=== PATIENT | male | born 1970 | race African-American/Black ===

== ENCOUNTER 2023-09-21 15:12 | Emergency (ER) | payer OTHER, SELFPAY ==
[2023-09-21 15:14] VITALS: BP 176/110; PULSE 112; RESP 18; TEMP 37.4; O2SAT 100; BMI 25.9
--- NOTE | 2023-09-21 16:46 | ED.VIS.GI ---
HPI HPI - GI History of Present Illness Chief Complaint: GI Bleed Informant: patient Narrative Narrative: Patient is a 53-year-old male present with bright red blood per rectum. Patient states he felt like he was getting a hemorrhoid yesterday and bought some Preparation H. He notes he was having pain with wiping but had not noticed any bleeding. He states he does sit on the toilet for extended amounts of time looking at his phone and reading the news. He is not on any blood thinners. Is never had a colonoscopy. Does not take any medicine on a daily basis. Today while he was bending over to pick something up he felt a pop in his rectal area and then noticed that he was bleeding around his rectum. He states the pain is actually improved since that pop. Because of the amount of blood around his rectum and in his underwear he came in to be evaluated further. Denies any prior history of any hemorrhoids. Does feel that there is some swelling in his rectal area as well. No other complaints at this time. PFSH PFSH Medical History no medical history Home Medications NK 09/21/23 [History Last Taken Unknown] Allergy/AdvReac Type Severity Reaction Status Date / Time No Known Allergies Allergy Verified 09/21/23 15:13 Family History no significant family his Surgical History History of hernia surgery Social History household members: significant other current occupational status: employed Smoking Status: Current every day smoker tobacco type: cigarettes ROS ROS ED Constitutional Constitutional ED: Denies chills or fever(s) Gastrointestinal Gastrointestinal: Reports other Details: Bright red blood per rectum, rectal pain?improving ; Denies abdominal pain, constipation, diarrhea, nausea or vomiting Genitourinary Genitourinary ED: Denies dysuria Musculoskeletal Musculoskeletal: Denies arthralgias or myalgias Integumentary Denies rash Neurologic Neurologic: Denies headache(s) Hematologic/Lymphatic Hematologic/Lymphatic: Denies easy bleeding or easy bruising EXAM Physical Exam Const Vital Signs: 09/21/23 15:14 09/21/23 17:01 Temperature 99.4 F H Temperature Source Oral Pulse Rate 112 H 80 Respiratory Rate 18 14 Blood Pressure 176/110 H 155/106 H Blood Pressure Mean 132 122 Pulse Ox 100 100 Oxygen Delivery Method Room Air Positive well nourished and well developed General Appearance ED: well developed and NAD; Negative for pallor HEENT Reports moist mucous membranes Resp normal respiratory effort Cardio regular rate and regular rhythm GI non-tender and non-distended GI Narrative: Patient has what appears to be an external hemorrhoid that had been bleeding and likely thrombosed on its own at the 3 o'clock position. No significant bleeding at this time. No significant tenderness. Palpation: soft; Negative for tender or guarding Neuro Sensorium / Orientation: alert, oriented to person, oriented to place and oriented to time Psych mental status grossly normal and thought process normal Skin no wounds General Skin Exam: Negative for pallor MDM MDM MDM Narrative Medical decision making narrative: Patient is evaluated for bright red blood per rectum. Initially some protocol orders have been placed by myself prior to seeing the patient due to his vital signs. However once I evaluated the patient I realized he had what appears to be a hemorrhoid that is thrombosed and spontaneously express itself/blood on its own. He is not actively bleeding. He is quite well-appearing. I do not think he needs laboratory evaluation at this time. No signs of secondary infection/abscess on exam. Will be given a referral for general surgery as he is also never had a screening colonoscopy. Is counseled on symptomatic treatment including sitz bath's, using donut pillow with sitting as he has a sit a lot at work, if he uses Preparation H to use it for no more than 1 week and the importance of following up with outpatient surgery for repeat evaluation and colonoscopy. Counseled to avoid straining with bowel movements and avoid sitting on the toilet for prolonged periods. Patient significant other verbalized agreement understand with this. Counseled that he might have some continued bleeding/oozing but as long as it is mild he will be fine to follow-up with surgery outpatient and it should stop on its own within the next few days. Given return precautions such as brisk bleeding, increasing pain, fever or developing abdominal pain or dizziness. Patient verbalized agreement understanding with this plan. Discharged home in stable condition. Discharge Plan Triage Chief Complaint: GI Bleed ED Provider: Linnea Fernandez Dx/Rx/DC Orders Clinical Impression: Bleeding external hemorrhoids Instructions: ED Hemorrhoids Prescriptions: No Action NK Primary Care Provider: Care Physician,No Primary Referrals: Jairo Figueroa MD [Med Staff - Active Staff] - As soon as possible Care Physician,No Primary [Primary Care Provider] - Activity Restrictions/Additional Instructions: It appears that you have a hemorrhoid that started bleeding on its own. Sometimes they can develop a clot (thrombosed) and these can pop and cause some residual bleeding. Apply compresses to the area, perform sitz bath's as we discussed, you can apply [id number] Preparation H but do not do this for more than a week and use a donut pillow. Please follow-up with general surgery for further evaluation, ensure you are healing well and discussion of colonoscopy. Disposition Disposition: Home, Self Care Discharge Date/Time: 09/21/23 17:11
[2023-09-21 17:01] VITALS: BP 155/106; PULSE 80; RESP 14; O2SAT 100
== END 2023-09-21 17:11 | disposition home or self-care (01) ==
PROVIDERS: Emergency Provider Emergency Medicine; Visit Provider Emergency Medicine
DX: K64.4 Residual hemorrhoidal skin tags (principal); F17.210 Nicotine dependence, cigarettes, uncomplicated
CPT/HCPCS: 99282

== ENCOUNTER 2023-10-31 21:47 | Emergency (ER) | payer OTHER, SELFPAY ==
[2023-10-31 21:47] VITALS: BP 166/107; PULSE 120; RESP 18; TEMP 36.8; O2SAT 99; BMI 26.6
[2023-10-31 22:07] VITALS: BP 154/101; PULSE 108; RESP 16
--- NOTE | 2023-10-31 22:38 | EKG12_ITS ---
Test Reason : CP Blood Pressure : / mmHG Vent. Rate : 111 BPM Atrial Rate : 111 BPM P-R Int : 178 ms QRS Dur : 088 ms QT Int : 324 ms P-R-T Axes : 053 025 033 degrees QTc Int : 440 ms Sinus tachycardia Inferior infarct , age undetermined Abnormal ECG Confirmed by ROC WESTBROOK, JASON ([id number]), video editor ISELA MACIAS ([id number]) on 11/09/2023 9:16:39 AM Referred By: Confirmed By:JASON BRIAN MD
--- NOTE | 2023-10-31 22:44 | EDS_ITS ---
HPI History of Present Illness Chief Complaint: Chest Pain Narrative Narrative: 53-year-old male who denies significant past medical history except for being a smoker presents with left-sided chest tightness that he has had all day. It is intermittent and maybe only lasts a few seconds to minutes. He denies any nausea or vomiting, no shortness of breath or diaphoresis. No exacerbating or alleviating factors. He also complained of left calf pain today, but no overt swelling. He denies any DVT or PE risk factors however. He states that his chest felt tight this evening. He was sitting down to watch a movie, and did not want to go to bed because his left chest felt uncomfortable. [facility] Medical History Smoker Home Medications NK 09/21/23 [History Last Taken Unknown] Allergy/AdvReac Type Severity Reaction Status Date / Time No Known Allergies Allergy Verified 10/31/23 21:49 Surgical History History of hernia surgery Social History household members: significant other current occupational status: employed Smoking Status: Current every day smoker tobacco type: cigarettes ROS ROS ED ROS Narrative Constitutional: No fever, no chills. HEENT: No sore throat. No neck pain. No loss of vision. No rhinorrhea. Cardiovascular: Left-sided chest tightness/chest pain. No palpitations. No pedal edema. Respiratory: No cough, no shortness of breath. Abdominal: No abdominal pain. No nausea. No vomiting. Genitourinary: No dysuria. No hematuria. Musculoskeletal: Left calf pain. No swelling. No arthralgias. Neurologic: No headaches. No dizziness. No lightheadedness. Skin: No rash. No change in color. Psychiatric: No depression. No anxiety. EXAM Physical Exam Narrative Exam Narrative: Afebrile. Vital signs noted. HEENT: Normocephalic. Atraumatic. PERRL, EOMI. Neck soft and supple. No point tenderness or step off. Cardiovascular: Positive tachycardia no murmurs, rubs, or gallops appreciated. Respiratory: No tachypnea. Lungs clear to auscultation bilaterally. Gastrointestinal: Abdomen soft, nontender, with normoactive bowel sounds. No rebound or guarding. Neurological: Awake. Alert. Nonfocal, nonlateralizing. Skin: No rash. Normal color. No pallor. Musculoskeletal: No pedal edema. Full range of motion extremities. Mild tenderness left calf, no swelling, no palpable cord, palpable dorsalis pedis pulse. Const Vital Signs: 10/31/23 21:47 10/31/23 22:07 10/31/23 22:10 Temperature 98.2 F Temperature Source Temporal Pulse Rate 120 H 108 H Respiratory Rate 18 16 Respiratory Effort Normal Blood Pressure 166/107 H 154/101 H Blood Pressure Mean 126 118 Pulse Ox 99 Oxygen Delivery Method Room Air 10/31/23 23:03 10/31/23 23:06 10/31/23 23:54 Temperature 98 F Temperature Source Oral Pulse Rate 110 H 103 H Respiratory Rate 16 17 Respiratory Effort Blood Pressure 151/91 H 162/110 H Blood Pressure Mean 111 127 Pulse Ox 94 94 94 Oxygen Delivery Method Room Air Room Air Room Air Heart Score History: Slightly/Non-Suspicious ECG: Normal Age: >45 - <65 years Risk Factors: 1 or 2 Risk Factors Score: 2 MDM MDM MDM Narrative Medical decision making narrative: In the differential diagnosis is acute coronary syndrome/STEMI/non-STEMI versus pulmonary embolism versus pneumonia versus pneumothorax. His history and physical is not consistent with pneumonia or pneumothorax. Comprehensive workup was pursued. EKG obtained and interpreted by myself independently as sinus tachycardia at 111 bpm without ectopy or acute ST changes. No STEMI. I reviewed his laboratory work and he has normal white count of 8.7, hemoglobin normal at 14.4, hematocrit 42.6, platelet count normal at 305. Electrolyte panel was reviewed and he has a normal sodium of 138, potassium 3.5, chloride 105, glucose appropriately elevated at 105 with a normal anion gap of 8. Initial high-sensitivity troponin is also 8. D-dimer is negative at less than 0.27. I have low suspicion for pulmonary embolism. Upon repeat examination at approximately 2345, he is resting comfortably and states he has not had the chest tightness while he has been here in the emergency department. I do not feel that he requires an aerosolized treatment as his pulse ox was 99% on room air and his lungs were clear to auscultation bilaterally. Smoking cessation was discussed as he may have had bronchospasm. Chest x-ray in 1 view interpreted by myself independently shows no evidence of pneumonia or pneumothorax. I reviewed the radiology report which confirms my independent interpretation. His blood pressure is slightly elevated here, but he is asymptomatic. He states he was told on a prior visit in September that he had elevation of his blood pressure and that he should follow-up with his primary care provider. I recommended the same. As his repeat troponin is also 8, I feel he be discharged to follow-up with his primary care provider. Return instructions to the emergency department were reviewed. Disposition is discharged home in stable condition. History & Record Review Discussion w/independent historian: Patient Additional record(s) reviewed:: Prior ED visit and Prior labs Lab Data Attestation: I reviewed the patient's lab results. Labs: Laboratory Results - last 24 hr 10/31/23 11/01/23 22:20 01:31 WBC 8.7 RBC 4.42 L Hgb 14.4 Hct 42.6 MCV 96.4 H MCH 32.6 H MCHC 33.8 RDW Std Deviation 46.3 H RDW Coeff of Charlene 12.9 Plt Count 305 MPV 9.6 Immature Gran % (Auto) 0.500 Neut % (Auto) 54.2 Lymph % (Auto) 32.2 [place] % (Auto) 9.6 Eos % (Auto) 2.6 Baso % (Auto) 0.9 Absolute Neuts (auto) 4.7 Absolute Lymphs (auto) 2.81 Nucleated RBC % 0 D-Dimer Quant (PE/DVT) < 0.27 L Sodium 138 Potassium 3.5 Chloride 105 Carbon Dioxide 25.0 Anion Gap 8 BUN 11 Creatinine 0.89 Estim Creat Clear Calc 107.78 Est GFR (MDRD) Af Amer 115 Est GFR (MDRD) Non-Af 95 BUN/Creatinine Ratio 12.3 Glucose 105 Calcium 8.6 Troponin I High Sens 8 8 Radiography Diagnostic Testing: Clinical Impression(s) from Imaging Studies Chest X-Ray 10/31/23 23:05 IMPRESSION: No radiographic evidence of acute cardiopulmonary disease. Electronically Signed: Maurice Lopez MD at 23:47 EST , Discharge Plan Triage Chief Complaint: Chest Pain ED Provider: Elías Burris Dx/Rx/DC Orders Clinical Impression: Pain of left calf, Chest tightness, Chest pain Instructions: ED Chest Pain, Uncertain Cause Prescriptions: No Action NK Primary Care Provider: Care Physician,No Primary Referrals: Camilo Mackay MD [Med Staff - Active Staff] - As soon as possible Care Physician,No Primary [Primary Care Provider] - Activity Restrictions/Additional Instructions: Follow-up with your primary care provider soon as possible. Stop smoking. Return with increased chest tightness, new or worsening symptoms. Disposition Disposition: Home, Self Care
[2023-10-31 23:03] VITALS: O2SAT 94
[2023-10-31] MEDS: 0.9% Normal Saline (1000mL) 1,000 ML 1000 ML IV (23:04)
[2023-10-31] MEDS: Aspirin 81 MG TAB.CHEW 324 MG PO (23:05)
--- NOTE | 2023-10-31 23:05 | RAD_ITS ---
EXAM: XR CHEST, 1 VIEW CLINICAL INDICATION: chest pain TECHNIQUE: Frontal view of the chest. COMPARISON: No relevant prior studies available. FINDINGS: LUNGS AND PLEURAL SPACES: Unremarkable. No consolidation or edema. No pneumothorax. No effusion. HEART: Unremarkable. Cardiac silhouette not enlarged. MEDIASTINUM: Central airways and mediastinal contour are unremarkable. BONES/JOINTS: Unremarkable. No acute fracture. SOFT TISSUES: Unremarkable. RAD/Chest 1 View (Portable) IMPRESSION: No radiographic evidence of acute cardiopulmonary disease. Electronically Signed: Maurice Lopez MD at 23:47 EST ,
[2023-10-31 23:06] VITALS: BP 151/91; PULSE 110; RESP 16; TEMP 36.6; O2SAT 94
[2023-10-31 23:19] LABS: Absolute Lymphocyte Count 2.81 X10^3/uL (0.83-4.51); Absolute Neutrophil Count 4.7 X10^3/uL (2.0-7.7); Basophil# 0.08 X10^3/uL; Basophil% 0.9 % (0-1); Eosinophil# 0.23 X10^3/uL; Eosinophils% 2.6 % (0-5); Hematocrit 42.6 % (40-54); Hemoglobin 14.4 g/dL (13.0-16.5); Lymphocyte # 2.81 X10^3/ul (0.83-4.51); Lymphocyte % 32.2 % (19-41); Mean Corp Hgb Conc 33.8 g/dL (32-36); Mean Corpuscular Hgb 32.6 pg (27.0-32.0); Mean Corpuscular Volume 96.4 fL (80-94); Mean Platelet Vol. 9.6 fl (6.2-12.0); Monocyte# 0.84 X10^3/uL; Monocyte% 9.6 % (0-10); NRBC Flagged by Analyzer 0 % (0-5); Neutrophil # 4.73 X10^3/uL (2.7-7.7); Neutrophil % 54.2 % (47-70); Platelet Count 305 K/mm3 (150-450); RBC Distribution Width CV 12.9 % (11.6-14.6); RBC Distribution Width SD 46.3 fl (35.1-43.9); Red Blood Count 4.42 M/mm3 (4.6-6.2); White Blood Count 8.7 K/mm3 (4.4-11.0)
[2023-10-31 23:36] LABS: Anion Gap 8 (5-15); BUN 11 mg/dL (7-18); BUN/Creat Ratio 12.3 RATIO (10-20); Calcium,Total 8.6 mg/dL (8.5-10.1); Chloride 105 mmol/L (98-107); Creatinine, Serum 0.89 mg/dL (0.70-1.30); EST Glomerular Filtration Rate 95 mL/min (>60); Est Glom Filt Rate - Afr Amer 115 mL/min (>60); Estimated Creatinine Clearance 107.78 ml/min; Glucose 105 mg/dL (74-106); Potassium 3.5 mmol/L (3.5-5.1); Sodium Level 138 mmol/L (136-145); Troponin-I HS (w/2H Reflex) 8 pg/mL (3.0-78.0)
[2023-10-31 23:38] LABS: D-Dimer Quantitative (DVT/PE) < 0.27 FEU/ug/m (0.27-0.49)
[2023-10-31 23:54] VITALS: BP 162/110; PULSE 103; RESP 17; O2SAT 94
[2023-11-01 01:15] LABS: Reflex Troponin-HS? (from REC) Y
[2023-11-01 02:08] LABS: Troponin-I HS 8 pg/mL (3.0-78.0)
[2023-11-01 02:17] VITALS: BP 152/98; PULSE 80; PULSE 81; RESP 16; O2SAT 97
== END 2023-11-01 02:19 | disposition home or self-care (01) ==
PROVIDERS: Emergency Provider Emergency Medicine; Visit Provider Emergency Medicine
DX: R07.89 Other chest pain (principal); M79.662 Pain in left lower leg; F17.210 Nicotine dependence, cigarettes, uncomplicated
CPT/HCPCS: 71045; 80048; 84484; 85025; 85379; 93005; 96360; 99285; A4216